=== PATIENT | female | born 1955 | race Caucasian/White ===

== ENCOUNTER 2018-02-05 00:32 | Emergency (ER) | payer OTHER ==
[2018-02-05] MEDS ORDERED: MECLIZINE HCL 25 MG TABLET (FP) PO ONE (01:13)
[2018-02-05] MEDS ORDERED: SODIUM CHLORIDE 0.9% 500 ML INFUS.BAG IV ONE (01:13)
[2018-02-05] MEDS ORDERED: ONDANSETRON 4 MG/2 ML VIAL IVPB ONE (01:13)
[2018-02-05 01:30] VITALS: BP 121/76; PULSE 87; TEMP 98.1; BMI 23.0
[2018-02-05] MEDS ORDERED: ONDANSETRON 4 MG/2 ML VIAL ONE (01:45)
[2018-02-05] MEDS ORDERED: MECLIZINE HCL 12.5 MG TABLET ONE (01:45)
[2018-02-05 02:12] LABS: BASO % 0.7 % (0-2.0); EOS % 0.3 % (0-4.5); HEMATOCRIT 39.5 % (32.4-45.2); MCH 27.6 pg (25.7-33.7); MCHC 32.9 g/dl (32.0-36.0); MEAN CELL VOLUME 84.1 fl (80-96); MONO % 4.4 % (3.8-10.2); NEUT % 83.6 % (42.8-82.8); RDW 14.2 % (11.6-15.6); WHITE BLOOD COUNT 13.7 K/mm3 (4.0-10.0)
[2018-02-05 02:26] LABS: URINE APPEARANCE CLEAR; URINE BILIRUBIN NEGATIVE (<2.0 mg/dL); URINE COLOR STRAW; URINE GLUCOSE (UA) NEGATIVE (NEGATIVE); URINE KETONE NEGATIVE (NEGATIVE); URINE LEUK ESTERASE NEGATIVE (NEGATIVE); URINE NITRITE NEGATIVE (NEGATIVE); URINE PROTEIN NEGATIVE (NEGATIVE); URINE UROBILINOGEN NEGATIVE mg/dL (0.2-1.0)
[2018-02-05 02:40] LABS: ALBUMIN 4.1 g/dl (3.4-5.0); ANION GAP 7 (8-16); BLOOD UREA NITROGEN 19 mg/dL (7-18); CALCIUM 8.7 mg/dL (8.5-10.1); CHLORIDE 104 mmol/L (98-107); CO2 27 mmol/L (21-32); CREATININE 0.8 mg/dL (0.55-1.02); GLUCOSE,RANDOM 114 mg/dL (74-106); SGPT/ALT 29 U/L (12-78); SODIUM 138 mmol/L (136-145)
[2018-02-05 02:44] LABS: ALK PHOS 77 U/L (45-117); BILIRUBIN,TOTAL 0.4 mg/dL (0.2-1.0); TOT PROT 8.2 g/dl (6.4-8.2)
[2018-02-05 02:46] LABS: PLATELET ESTIMATE ADEQUATE
[2018-02-05 02:48] LABS: SGOT/AST 29 U/L (15-37)
--- NOTE | 2018-02-05 03:18 | PDOC ---
History of Present Illness - General Chief Complaint: Nausea/Vomiting Stated Complaint: VOMITING Time Seen by Provider: 02/05/18 01:04 History Source: Patient Exam Limitations: No Limitations - History of Present Illness Initial Comments: 02/05/18 03:09 Patient is a 63-year-old female with a history of hypothyroid, asthma, GERD, cholecystectomy, complaining of nausea vomiting dizziness since 5:30 PM today. Patient states she was at home and attempted to lay down and developed sudden onset of room spinning which was associated with nausea and vomiting. She feels better with standing up and not moving her head. She denies any chest pain, shortness of breath, diaphoresis. No prior episode. PMD: Dr. Quiñones PMHX: as above PSOCHX: neg etoh, drugs, cig ALL: NKDA GENERAL/CONSTITUTIONAL: [No fever or chills. No weakness. No weight change.] HEAD, EYES, EARS, NOSE AND THROAT: [No change in vision. No ear pain or discharge. No sore throat.] CARDIOVASCULAR: [No chest pain or shortness of breath.] RESPIRATORY: [No cough, wheezing, or hemoptysis.] GASTROINTESTINAL: [No nausea, vomiting, diarrhea or constipation. No rectal bleeding.] GENITOURINARY: [No dysuria, frequency, or change in urination.] MUSCULOSKELETAL: [No joint or muscle swelling or pain. No neck or back pain.] SKIN AND BREASTS: [No rash or easy bruising.] NEUROLOGIC: [No headache, (+) vertigo,(-) loss of consciousness, or loss of sensation.] PSYCHIATRIC: [No depression or anxiety.] ENDOCRINE: [No increased thirst. No abnormal weight change.] HEMATOLOGIC/LYMPHATIC: [No anemia, easy bleeding, or history of blood clots.] ALLERGIC/IMMUNOLOGIC: [No hives or skin allergy. No latex allergy.] GENERAL: [The patient is awake, alert, and fully oriented, in mild distress.] HEAD: [Normal with no signs of trauma.] EYES: [Pupils equal, round and reactive to light, extraocular movements intact, sclera anicteric, conjunctiva clear.] ENT: [Ears normal, nares patent, oropharynx clear without exudates. Moist mucous membranes.] NECK: [Normal range of motion, supple without lymphadenopathy, JVD, or masses.] LUNGS: [Breath sounds equal, clear to auscultation bilaterally. No wheezes, and no crackles.] HEART: [Regular rate and rhythm, normal S1 and S2 without murmur, rub.] ABDOMEN: [Soft, nontender, normoactive bowel sounds. No guarding, no rebound. No masses.] EXTREMITIES: [Normal range of motion, no edema. No clubbing or cyanosis. No cords, erythema, or tenderness.] NEUROLOGICAL: [Cranial nerves II through XII grossly intact. Normal speech, normal gait, cerebellar function intact, (+) nystagmus] PSYCH: [Normal mood, normal affect.] SKIN: [Warm, Dry, normal turgor, no rashes or lesions noted.] Past History - Past Medical History Allergies/Adverse Reactions: Allergies Allergy/AdvReac Type Severity Reaction Status Date / Time No Known Allergies Allergy Verified 02/05/18 01:36 Home Medications: Ambulatory Orders Albuterol Sulfate Inhaler - [Ventolin HFA Inhaler -] 1 - 2 inh PO Q4H 06/30/13 Levothyroxine [Synthroid -] 50 mcg PO DAILY 06/30/13 Aspirin [ASA -] 81 mg PO DAILY 10/03/14 Omeprazole [Prilosec (RX)] 40 mg PO BID 10/03/14 Salmeterol/Fluticasone [Advair 100Mcg/50Mcg -] 1 inh IH BID #1 inh 10/07/14 Oxycodone HCl 5 mg PO Q4H #30 tablet 05/01/15 Ondansetron [Zofran -] 4 mg PO QID PRN #20 tablet 05/15/15 Meclizine HCl [Antivert -] 25 mg PO TID #21 tablet 02/05/18 Asthma: Yes Thyroid Disease: Yes (hypo) - Surgical History Abdominal Surgery: Yes (tubal ligation) Cholecystectomy: Yes - Immunization History Immunization Up to Date: No - Suicide/Smoking/Psychosocial Hx Smoking History: Never smoked Have you smoked in the past 12 months: No Number of Cigarettes Smoked Daily: 0 Cigars Per Day: 0 Hx Alcohol Use: No Drug/Substance Use Hx: No Substance Use Type: None *Physical Exam - Vital Signs Last Vital Signs Temp Pulse Resp BP Pulse Ox 98.1 F 87 16 121/76 99 02/05/18 01:21 02/05/18 01:21 02/05/18 01:21 02/05/18 01:21 02/05/18 01:21 ED Treatment Course - LABORATORY CBC & Chemistry Diagram: 02/05/18 02:00 02/05/18 02:00 - ADDITIONAL ORDERS Additional order review: Laboratory Results 02/05/18 02/05/18 02:00 02:00 Sodium 138 Potassium 4.0 Chloride 104 Carbon Dioxide 27 Anion Gap 7 L BUN 19 H Creatinine 0.8 Creat Clearance w eGFR > 60 Random Glucose 114 H Calcium 8.7 Total Bilirubin 0.4 AST 29 ALT 29 Alkaline Phosphatase 77 Creatine Kinase 175 Troponin I < 0.02 Total Protein 8.2 Albumin 4.1 Urine Color Straw Urine Appearance Clear Urine pH 5.0 D Ur Specific [place] 1.009 Urine Protein Negative Urine Glucose (UA) Negative Urine Ketones Negative Urine Blood Negative Urine Nitrite Negative Urine Bilirubin Negative Urine Urobilinogen Negative Ur Leukocyte Esterase Negative 02/05/18 02:00 RBC 4.70 MCV 84.1 MCHC 32.9 RDW 14.2 Neutrophils % 83.6 H Lymphocytes % 11.0 D Monocytes % 4.4 Eosinophils % 0.3 D Basophils % 0.7 - RADIOLOGY Radiology Studies Ordered: Category Date Time Status HEAD CT WITHOUT CONTRAST [CT] Stat CT Scan 02/05/18 01:13 Ordered - Medications Given in the ED: ED Medications Discontinued Medications Generic Name Dose Route Start Last Admin Trade Name Freq PRN Reason Stop Dose Admin Meclizine HCl 50 mg 02/05/18 01:13 02/05/18 02:00 Antivert - PO 02/05/18 01:14 50 mg ONCE ONE Administration Ondansetron HCl 4 mg 02/05/18 01:13 02/05/18 02:00 Zofran Injection IVPB 02/05/18 01:14 4 mg ONCE ONE Administration Sodium Chloride 1,000 ml 02/05/18 01:13 02/05/18 02:00 Normal Saline - IV 02/05/18 01:14 1,000 ml ONCE ONE Administration Medical Decision Making - Medical Decision Making 02/05/18 03:09 Patient is a 63-year-old female with a history of hypothyroid, asthma, GERD, cholecystectomy, complaining of nausea vomiting dizziness since 5:30 PM today. Symptoms are consistent with benign positional vertigo however we will get a CT scan of the head to rule out brain lesions or pathology. Will give IV fluids, Zofran and Antivert. Reassess EKG SR rate 95, NAD, prolong QTc 500, (-) ST-T wave changes Patient complains of dizziness will give her Reglan 10 mg IV 02/05/18 05:27 Patient Full Name: MARGARET NUR Patient Accession No: [id number] Patient : [id number] Reason for Exam: dizziness,vertigo Referring Physician: Patient Name: BOOM ROBLES THIS IS A PRELIMINARY REPORT FROM [facility] DATE OF SERVICE: 2018-02-05 04:04:58 IMAGES: [id number] EXAM: HEAD CT WITHOUT CONTRAST HISTORY: Dizziness and vertigo COMPARISON: None. FINDINGS: The ventricular system is midline and nondilated. The sulcal pattern is normal for the patient's age. There is no bleed, mass, extra-axial fluid collection or mass effect. No skull fracture or skull lesion is identified. The visualized paranasal sinuses and mastoid air cells are clear. IMPRESSION: Normal exam. Individualized dose optimization techniques were used for this CT. THIS DOCUMENT HAS BEEN ELECTRONICALLY SIGNED Julio Cesar Cardoza MD 02/05/2018 04:15 BEVERLY Prasad. Please call [facility] [phone] ([phone]) with questions. INTERPRETING RADIOLOGIST: Kong Cardoza MD Electronically Signed: Feb 05, 2018 04:17AM EDT 02/05/18 06:15 Patient's symptoms have improved dizziness is resolved. Will discharge home I discussed the physical exam findings, ancillary test results and final diagnoses with the patient. I answered all of the patient's questions. The patient was satisfied with the care received and felt comfortable with the discharge plan and treatment plan. The Patient agrees to follow up with the primary care physician within 24-72 hours. *DC/Admit/Observation/Transfer Diagnosis at time of Disposition: Vertigo - Discharge Dispostion Disposition: HOME Condition at time of disposition: Stable - Prescriptions Prescriptions: Meclizine HCl [Antivert -] 25 mg PO TID #21 tablet - Referrals - Patient Instructions Printed Discharge Instructions: DI for Benign Paroxysmal Positional Vertigo, DI for Vomiting -- Adult Additional Instructions: Your Discharge Instructions: You must call primary care physician within 24 hours to arrange follow-up. Return to the Emergency Department with any new, persistent or worsening symptoms, for fever, chills, SOB, dizziness or any other concerning changes that may occur. He was follow-up with your PMD far Neurology referral. - Post Discharge Activity
[2018-02-05] MEDS ORDERED: METOCLOPRAMIDE HCL INJECTION 10 MG/2 ML VIAL IVPUSH ONE (04:11)
--- NOTE | 2018-02-05 12:10 | EKG ---
Test Reason : Blood Pressure : / mmHG Vent. Rate : 095 BPM Atrial Rate : 095 BPM P-R Int : 136 ms QRS Dur : 072 ms QT Int : 398 ms P-R-T Axes : 077 083 066 degrees QTc Int : 500 ms NORMAL SINUS RHYTHM PROLONGED QT ABNORMAL ECG WHEN COMPARED WITH ECG OF 25-APR-2015 19:51, NO SIGNIFICANT CHANGE WAS FOUND Confirmed by VERONICA EHWITT MD ([id number]) on 02/05/2018 12:09:50 PM Referred By: Confirmed By:VERONICA HEWITT MD
== END 2018-02-05 06:39 | disposition home or self-care (01) ==
LOC: JER 00:32
PROC: 3E033GC Introduction of Other Therapeutic Substance into Peripheral Vein, Percutaneous Approach (ICD-10-PCS; principal; 2018-02-05)
PROC: 3E033GC Introduction of Other Therapeutic Substance into Peripheral Vein, Percutaneous Approach (ICD-10-PCS; 2018-02-05)
DX: R42 Dizziness and giddiness (principal); J45.909 Unspecified asthma, uncomplicated; K21.9 Gastro-esophageal reflux disease without esophagitis; E03.9 Hypothyroidism, unspecified; Z90.49 Acquired absence of other specified parts of digestive tract
CPT/HCPCS: 36415; 70450-TC; 80053; 81003; 82550; 82553; 84484; 85025; 93005; 93010; 96374; 96375; 99282-25

== ENCOUNTER 2020-08-19 10:12 | Day surgery (SDC) | payer OTHER ==
[2020-08-12 14:25] VITALS: BMI 23.3
[2020-08-19] MEDS ORDERED: PROPOFOL 20 ML ONE ×2 (10:44)
[2020-08-19] MEDS ORDERED: LIDOCAINE HCL/PF 2% SDV 5ML VIAL ONE (10:44)
[2020-08-19 12:11] VITALS: BP 130/78; PULSE 98; TEMP 97.9
== END 2020-08-19 12:13 | disposition home or self-care (01) ==
LOC: FASU-ENDO 10:12
PROVIDERS: ATTEND Internal Medicine Gastroenterology
PROC: 0DBN8ZX Excision of Sigmoid Colon, Via Natural or Artificial Opening Endoscopic, Diagnostic (ICD-10-PCS; principal; 2020-08-19 11:12)
DX: Z09 Encounter for follow-up examination after completed treatment for conditions other than malignant neoplasm (principal); Z86.010 Personal history of colon polyps; D12.5 Benign neoplasm of sigmoid colon; R19.5 Other fecal abnormalities; K64.0 First degree hemorrhoids

== ENCOUNTER 2023-11-24 01:46 | Observation (INO) | payer OTHER ==
[2023-11-24 01:52] VITALS: BMI 21.2
[2023-11-24] MEDS: SODIUM CHLORIDE 0.9% 500 ML INFUS.BAG IV ONE (02:18)
[2023-11-24 02:21] LABS: BASO % 0.4 % (0-2.0); EOS % 0.5 % (0-4.5); HEMATOCRIT 37.5 % (32.4-45.2); HEMOGLOBIN 12.6 GM/dL (10.7-15.3); LYMPH % 34.5 % (8-40); MCH 28.4 pg (25.7-33.7); MCHC 33.6 g/dl (32.0-36.0); MEAN CELL VOLUME 84.3 fl (80-96); MEAN PLT VOLUME 8.3 fl (7.5-11.1); MONO % 7.7 % (3.8-10.2); NEUT % 56.9 % (42.8-82.8); PLATELET COUNT 226 10^3/uL (134-434); RBC 4.45 M/mm3 (3.60-5.2); RDW 14.5 % (11.6-15.6); WHITE BLOOD COUNT 7.8 K/mm3 (4.0-10.0)
[2023-11-24 02:42] LABS: EPI CELLS 2 /uL (0-25.1); HYALINE CASTS 0 /uL (0-3.1); URINE APPEARANCE CLEAR; URINE BACTERIA 24 /uL (0-1359); URINE BILIRUBIN NEGATIVE (NEGATIVE); URINE COLOR YELLOW; URINE GLUCOSE (UA) NEGATIVE (NEGATIVE); URINE KETONE NEGATIVE (NEGATIVE); URINE LEUK ESTERASE TRACE (NEGATIVE); URINE NITRITE NEGATIVE (NEGATIVE); URINE PROTEIN NEGATIVE (NEGATIVE); URINE RBC 12 /uL (0-23.9); URINE UROBILINOGEN 0.2 mg/dL (0.2-1.0); URINE WBC 6 /uL (0-25.8)
[2023-11-24 02:44] LABS: POTASSIUM 3.6 mmol/L (3.5-5.1)
[2023-11-24 02:45] LABS: CALCIUM 9.3 mg/dL (8.5-10.1)
[2023-11-24 02:46] LABS: ALBUMIN 3.9 g/dl (3.4-5.0); BLOOD UREA NITROGEN 12.9 mg/dL (7-18); MAGNESIUM 2.3 mg/dL (1.8-2.4)
[2023-11-24 02:49] LABS: CREATININE 0.8 mg/dL (0.55-1.3)
[2023-11-24 02:51] LABS: BILIRUBIN,TOTAL 0.4 mg/dL (0.2-1); TOT PROT 7.4 g/dl (6.4-8.2)
[2023-11-24] MEDS ORDERED: ACETAMINOPHEN INJECTION 100 ML IVPB ONE (04:13)
[2023-11-24] MEDS ORDERED: FAMOTIDINE 20 MG/50 ML IVPB 20 MG/50 ML MG IVPB ONE (04:13)
[2023-11-24] MEDS: ACETAMINOPHEN 1000 MG/100 ML BAG IVPB ONE (04:16)
[2023-11-24] MEDS: FAMOTIDINE 20 MG/50 ML IVPB 20 MG/50 ML MG IVPB ONE (04:16)
[2023-11-24] MEDS ORDERED: ONDANSETRON 4 MG/2 ML VIAL ONE (05:04)
[2023-11-24] MEDS ORDERED: MECLIZINE HCL 25 MG TABLET (FP) PO PRN (05:06)
[2023-11-24] MEDS: ONDANSETRON 4 MG/2 ML VIAL IVPUSH ONE (05:07)
[2023-11-24] MEDS ORDERED: ALBUTEROL SO4 HFA INHALER IH PRN (05:44)
[2023-11-24] MEDS: ALBUTEROL SO4 HFA INHALER IH SCH (05:46)
[2023-11-24] MEDS: ASPIRIN 81 MG CHEWABLE TABLETS PO SCH (10:06)
[2023-11-24] MEDS: PANTOPRAZOLE 40 MG TABLET PO SCH (10:06)
[2023-11-24] MEDS: FLUTICASONE/SALMETEROL (WIXELA) 100 MCG/50 MCG DISKUS IH SCH (10:09)
[2023-11-24] MEDS: LEVOTHYROXINE NA 50 MCG TABLET (FP) PO SCH (12:17)
[2023-11-24] MEDS ORDERED: MAG HYDROX/AL HYDROX/SIMETH 30 ML UNIT-DOSE CUP PO PRN (12:34)
[2023-11-24 15:29] VITALS: BP 108/96; PULSE 90; RESP 18; TEMP 98.1
== END 2023-11-24 18:08 | disposition home or self-care (01) ==
LOC: JER 01:46 → JERBED 04:55 → J4W 06:17
PROVIDERS: ADMIT Internal Medicine; ATTEND Internal Medicine
PROC: 3E033NZ Introduction of Analgesics, Hypnotics, Sedatives into Peripheral Vein, Percutaneous Approach (ICD-10-PCS; principal; 2023-11-24)
PROC: 3E033GC Introduction of Other Therapeutic Substance into Peripheral Vein, Percutaneous Approach (ICD-10-PCS; 2023-11-24)
PROC: 3E033GC Introduction of Other Therapeutic Substance into Peripheral Vein, Percutaneous Approach (ICD-10-PCS; 2023-11-24)
PROC: 3E0337Z Introduction of Electrolytic and Water Balance Substance into Peripheral Vein, Percutaneous Approach (ICD-10-PCS; 2023-11-24)
DX: R00.2 Palpitations (principal); E03.9 Hypothyroidism, unspecified; R10.13 Epigastric pain; J45.909 Unspecified asthma, uncomplicated; Z90.79 Acquired absence of other genital organ(s); Z90.49 Acquired absence of other specified parts of digestive tract
CPT/HCPCS: 0241U-QW; 36415; 70450-TC; 71045-TC-FY; 80053; 81003; 83735; 84439; 84443; 84484; 85025; 85379; 87086; 93005; 93010; 93306-TC; 96365; 96375; 99285-25; G0378; J0131

== ENCOUNTER 2024-10-01 00:40 | Emergency (ER) | payer OTHER ==
[2024-10-01 00:55] VITALS: BMI 20.3
[2024-10-01] MEDS ORDERED: ACETAMINOPHEN INJECTION 100 ML ONE (01:58)
[2024-10-01] MEDS: ACETAMINOPHEN 1000 MG/100 ML BAG IVPB ONE (02:01)
[2024-10-01] MEDS: SODIUM CHLORIDE 0.9% 500 ML INFUS.BAG IV ONE (02:01)
[2024-10-01 02:37] LABS: BASO % 0.3 % (0-2.0); EOS % 0.4 % (0-4.5); HEMATOCRIT 39.3 % (32.4-45.2); HEMOGLOBIN 12.9 GM/dL (10.7-15.3); LYMPH % 30.1 % (8-40); MCH 27.9 pg (25.7-33.7); MCHC 32.9 g/dl (32.0-36.0); MEAN CELL VOLUME 84.8 fl (80-96); MEAN PLT VOLUME 8.8 fl (7.5-11.1); MONO % 10.3 % (3.8-10.2); NEUT % 58.9 % (42.8-82.8); PLATELET COUNT 221 10^3/uL (134-434); RBC 4.63 M/mm3 (3.60-5.2); RDW 14.1 % (11.6-15.6); WHITE BLOOD COUNT 5.7 K/mm3 (4.0-10.0)
[2024-10-01 02:53] LABS: POTASSIUM 4.3 mmol/L (3.5-5.1)
[2024-10-01 02:55] LABS: ALBUMIN 4.1 g/dl (3.4-5.0); BLOOD UREA NITROGEN 17.7 mg/dL (7-18); CALCIUM 9.5 mg/dL (8.5-10.1)
[2024-10-01 02:58] LABS: CREATININE 0.8 mg/dL (0.55-1.3)
[2024-10-01 03:00] LABS: BILIRUBIN,TOTAL 0.4 mg/dL (0.2-1); TOT PROT 7.5 g/dl (6.4-8.2)
[2024-10-01] MEDS ORDERED: METOCLOPRAMIDE HCL INJECTION 10 MG/2 ML VIAL ONE (03:23)
[2024-10-01] MEDS: METOCLOPRAMIDE HCL INJECTION 10 MG/2 ML VIAL IVPB ONE (03:25)
[2024-10-01 04:28] VITALS: BP 114/65; PULSE 96; RESP 18; TEMP 98.2
== END 2024-10-01 04:36 | disposition home or self-care (01) ==
LOC: JER 00:40
PROC: 3E033NZ Introduction of Analgesics, Hypnotics, Sedatives into Peripheral Vein, Percutaneous Approach (ICD-10-PCS; principal; 2024-10-01)
PROC: 3E033GC Introduction of Other Therapeutic Substance into Peripheral Vein, Percutaneous Approach (ICD-10-PCS; 2024-10-01)
DX: R00.2 Palpitations (principal); R19.7 Diarrhea, unspecified; R51.9 Headache, unspecified; R06.02 Shortness of breath; R11.0 Nausea; R53.81 Other malaise; R00.0 Tachycardia, unspecified
CPT/HCPCS: 36415; 71046-TC-FY; 80053; 84439; 84443; 84484; 85025; 85379; 93005; 93010; 96374; 96375; 99285-25; J0131